=== PATIENT | female | born 1980 | race Caucasian/White ===

== ENCOUNTER 2019-01-05 19:21 | Emergency (ER) | payer OTHER ==
[2019-01-05 20:36] LABS: APPEARANCE,URINE CLEAR; BILIRUBIN,URINE NEGATIVE (NEGATIVE); COLOR,URINE AMBER; GLUCOSE, URINE NEGATIVE (NEGATIVE); KETONES,URINE NEGATIVE (NEGATIVE); LEUKOCYTE ESTERASE,URINE NEGATIVE (NEGATIVE); NITRITE,URINE POSITIVE (NEGATIVE); PROTEIN,URINE NEGATIVE (NEGATIVE); URINE SPECIFIC GRAVITY 1.012
--- NOTE | 2019-01-05 20:55 | ER Document Report ---
ED Medical Screen (RME) - General Chief Complaint: Urinary Problem Stated Complaint: URINARY PROBLEMS Time Seen by Provider: 01/05/19 20:53 Primary Care Provider: SANDY GARCIA FNP-C [Primary Care Provider] - Follow up as needed Information source: Patient TRAVEL OUTSIDE OF THE [place] IN LAST 30 DAYS: No - HPI Patient complains to provider of: UTI Notes: 01/05/19 20:54 Patient here with complaints of UTI symptoms. She was seen by her family doctor yesterday and was started on Macrobid for UTI. She states that she feels like she is getting worse now having some abdominal pain with nausea and feeling feverish. She feels like she may be getting a kidney infection. Exam No distress, nontoxic-appearing. Plan CBC, CMP, urine, urine , urine culture An initial examination was made on the patient as part of the triage process, and it was determined a more comprehensive evaluation was necessary. Initial labs were ordered and patient was transferred to another provider in the ED who assumed care and finished evaluation and plan. - Related Data Allergies/Adverse Reactions: No Known Drug Allergies Allergy (Verified 01/05/19 19:23) Past Medical History Renal/ Medical History: Denies: Hx Peritoneal Dialysis GI Medical History: Reports: Hx Gastroesophageal Reflux Disease Past Surgical History: Reports: Hx Abdominal Surgery - "tummy tuck", Hx Tonsillectomy Physical Exam - Vital signs Vitals: Temp Pulse Resp BP Pulse Ox 99.1 F 89 18 112/73 96 01/05/19 19:38 01/05/19 19:38 01/05/19 19:38 01/05/19 19:38 01/05/19 19:38 Course - Vital Signs Vital signs: Temp Pulse Resp BP Pulse Ox 99.1 F 89 18 112/73 96 01/05/19 19:38 01/05/19 19:38 01/05/19 19:38 01/05/19 19:38 01/05/19 19:38 - Laboratory Laboratory results interpreted by me: 01/05/19 20:06 Urine Nitrite POSITIVE H Urine Urobilinogen 4.0 H Doctor's Discharge - Discharge Referrals: SANDY GARCIA FNP-C [Primary Care Provider] - Follow up as needed
[2019-01-05 21:04] LABS: ABSOLUTE LYMPHOCYTES (AUTO) 0.9 10^3/uL (0.5-4.7); ABSOLUTE MONOCYTES (AUTO) 0.7 10^3/uL (0.1-1.4); ABSOLUTE NEUT (AUTO) 6.1 10^3/uL (1.7-8.2); BASOPHILS % (AUTO) 0.3 % (0-2); EOSINOPHILS % (AUTO) 0.4 % (0-6); HEMOGLOBIN 12.2 g/dL (12.0-15.5); LYMPHOCYTES % (AUTO) 11.5 % (13-45); MEAN CORPUSCULAR HEMOGLOBIN 27.9 pg (27.0-33.4); MEAN CORPUSCULAR VOLUME 85 fl (80-97); MONOCYTES % (AUTO) 8.5 % (3-13); PLATELET COUNT 252 10^3/uL (150-450); RED BLOOD COUNT 4.37 10^6/uL (3.72-5.28); RED CELL DISTRIBUTION WIDTH 15.2 % (11.5-14.0); SEGMENTED NEUTROPHILS % (AUTO) 79.3 % (42-78); TOTAL CELLS COUNTED % (AUTO) 100 %; WHITE BLOOD COUNT 7.7 10^3/uL (4.0-10.5)
[2019-01-05 21:23] LABS: ALANINE AMINOTRANSFERASE 40 U/L (9-52); ALBUMIN 4.2 g/dL (3.5-5.0); ALKALINE PHOSPHATASE 90 U/L (38-126); ANION GAP 10 (5-19); ASPARTATE AMINO TRANSFERASE 37 U/L (14-36); BILIRUBIN,TOTAL 0.4 mg/dL (0.2-1.3); BLOOD UREA NITROGEN 8 mg/dL (7-20); CALCIUM 9.4 mg/dL (8.4-10.2); CARBON DIOXIDE 25 mmol/L (22-30); CHLORIDE 103 mmol/L (98-107); GLUCOSE 111 mg/dL (75-110); LIPASE 89.9 U/L (23-300); POTASSIUM 3.9 mmol/L (3.6-5.0); SODIUM 138.1 mmol/L (137-145); TOTAL PROTEIN 7.3 g/dL (6.3-8.2)
--- NOTE | 2019-01-05 23:09 | ER Document Report ---
ED GI/ - General Chief Complaint: Urinary Problem Stated Complaint: URINARY PROBLEMS Time Seen by Provider: 01/05/19 20:53 Primary Care Provider: SANDY GARCIA FNP-C [Primary Care Provider] - Follow up as needed Mode of Arrival: Ambulatory Notes: Patient is a 38-year-old female comes emergency room complaining of urinary tract symptoms. She states symptoms started approximately 1 week ago and progressively got worse. She started treatment by herself with cranberry pills and fluids and then went on a short vacation but when she returned by Friday she was aching all over her body. On Friday she states she had a fever up to 101.6 up to max 102.6. She went to the urgent care center yesterday and was diagnosed with UTI and placed on Macrobid. She has had 3 doses total of the Macrobid and feels even worse. She does state that her fevers seem to have subsided but she still having some flank pain more on the right than the left but she has flank pain on both sides. Last menstrual. Approximately 1 month ago. Patient states as a child at age 17 she had a history of pyelonephritis. She was hospitalized more than once with that diagnosis. Though this does not feel 100% like that it has similarities. TRAVEL OUTSIDE OF THE [place] IN LAST 30 DAYS: No - HPI Patient complains to provider of: Abdominal pain, Dysuria, Urinary retention Onset: Last week Quality of pain: Cramping, Pressure, Sharp, Throbbing Severity at maximum: Severe Severity in ED: Moderate Pain Level: 3 Location: Left flank, Right flank, Low back Vaginal bleeding (Compared to normal period): None LMP: 12-15-18 Sexual history: Active, Unprotected intercourse Associated symptoms: Chills, Fever, Urinary hesitancy, Urinary frequency, Urinary retention, Urinary urgency. denies: Vaginal discharge, Vomiting Exacerbated by: Denies Relieved by: Denies Similar symptoms previously: Yes Recently seen / treated by doctor: Yes - Related Data Allergies/Adverse Reactions: No Known Drug Allergies Allergy (Verified 01/05/19 19:23) Past Medical History - General Information source: Patient - Social History Smoking Status: Unknown if Ever Smoked Cigarette use (# per day): No Chew tobacco use (# tins/day): No Smoking Education Provided: No Frequency of alcohol use: None Drug Abuse: None Lives with: Family Family History: Reviewed & Not Pertinent Patient has suicidal ideation: No Patient has homicidal ideation: No Renal/ Medical History: Denies: Hx Peritoneal Dialysis GI Medical History: Reports: Hx Gastroesophageal Reflux Disease Past Surgical History: Reports: Hx Abdominal Surgery - "tummy tuck", Hx Tonsillectomy Review of Systems - Review of Systems Constitutional: No symptoms reported EENT: No symptoms reported Cardiovascular: No symptoms reported Respiratory: No symptoms reported Gastrointestinal: See HPI, Abdominal pain Genitourinary: See HPI, Dysuria, Frequency, Flank pain, Urgency, Retention. denies: Discharge Female Genitourinary: No symptoms reported Musculoskeletal: No symptoms reported Skin: No symptoms reported Hematologic/Lymphatic: No symptoms reported Neurological/Psychological: No symptoms reported -: Yes All other systems reviewed and negative Physical Exam - Vital signs Vitals: Temp Pulse Resp BP Pulse Ox 99.1 F 89 18 112/73 96 01/05/19 19:38 01/05/19 19:38 01/05/19 19:38 01/05/19 19:38 01/05/19 19:38 Interpretation: Normal - General General appearance: Alert In distress: None - HEENT Head: Normocephalic, Atraumatic Eyes: Normal Conjunctiva: Normal Ears: Normal External canal: Normal Tympanic membrane: Normal Sinus: Normal. No: Swelling Nasal: Normal. No: Purulent discharge Mouth/Lips: Normal Mucous membranes: Normal, Moist Pharynx: Normal. No: Erythema, Exudate Neck: Normal - Respiratory Respiratory status: No respiratory distress Chest status: Nontender Breath sounds: Normal. No: Rales, Rhonchi, Wheezing Chest palpation: Normal - Cardiovascular Rhythm: Regular Heart sounds: Normal auscultation Murmur: No - Abdominal Inspection: Normal Distension: No distension Bowel sounds: Normal Tenderness: Nontender Notes: Examination of the abdomen is normal except she displays some mild tenderness to palpation of the suprapubic area. - Back Back: Tender, CVA tenderness - Extremities General upper extremity: Normal inspection, Nontender General lower extremity: Normal inspection, Nontender - Neurological Neuro grossly intact: Yes Cognition: Normal Orientation: AAOx4 [place] Coma Scale Eye Opening: Spontaneous Elise Coma Scale Verbal: Oriented Elise Coma Scale Motor: Obeys Commands Elise Coma Scale Total: 15 - Skin Skin Temperature: Warm Skin Moisture: Dry Skin Color: Normal, Riva Course - Vital Signs Vital signs: Temp Pulse Resp BP Pulse Ox 98.9 F 86 16 118/70 98 01/06/19 00:42 01/06/19 00:42 01/06/19 00:42 01/06/19 00:42 01/06/19 00:42 - Laboratory Result Diagrams: 01/05/19 20:52 01/05/19 20:52 Laboratory results interpreted by me: 01/05/19 01/05/19 01/05/19 20:06 20:52 20:52 RDW 15.2 H Seg Neutrophils % 79.3 H Lymphocytes % 11.5 L Glucose 111 H AST 37 H Urine Nitrite POSITIVE H Urine Urobilinogen 4.0 H Discharge - Discharge Clinical Impression: Urinary tract infection Qualifiers: Urinary tract infection type: acute cystitis Hematuria presence: without hematuria Qualified Code(s): N30.00 - Acute cystitis without hematuria Condition: Stable Disposition: HOME, SELF-CARE Instructions: Cephalexin ([facility]), Urinary Tract Infection ([facility]) Additional Instructions: As we discussed stop the Macrobid for now. I am placing you on Keflex 1 pill twice a day for the next 10 days. I am also writing you a Diflucan pill which is to stop you from getting a yeast infection on top of a urinary tract infection. Highly suggest follow-up with your primary care provider for further work-up if you continue to have symptomatology. If for any reason you spike a fever or the pain gets worse come back and we will CTU and recheck your white count which is normal right now. Prescriptions: Cephalexin Monohydrate [Keflex 500 mg Capsule] 500 mg PO BID 10 Days #20 capsule Fluconazole [Diflucan] 150 mg PO ONCE PRN #1 tablet PRN Reason: Forms: Return to Work Referrals: SANDY GARCIA FNP-C [Primary Care Provider] - Follow up as needed
[2019-01-05] MEDS ORDERED: CEFTRIAXONE INJ 1000 MG VIAL IM ONE (23:25)
[2019-01-06] MEDS ORDERED: HYDROCODONE/ACETAMINOPHEN 5-325 MG (6 TAB/ER DISP) PO PRN (00:34)
[2019-01-06 00:45] VITALS: BP 118/70
== END 2019-01-06 00:45 | disposition home or self-care (01) ==
LOC: ER 19:21
DX: N30.00 Acute cystitis without hematuria (principal); R10.9 Unspecified abdominal pain
CPT/HCPCS: 99283; 96372; 36415; 87086; 83690; 85025; 81025; 80053; 81001; J0696